=== PATIENT | male | born 1975 | race Caucasian/White ===

== ENCOUNTER 2021-08-12 13:54 | Outpatient (CLI) | payer OTHER ==
--- NOTE | 2021-08-12 14:31 | XRay Report ---
CHEST 2 VIEWS INDICATION / CLINICAL INFORMATION: FOR BASELINE HTN. COMPARISON: None available. FINDINGS: SUPPORT DEVICES: None. HEART / MEDIASTINUM: No significant abnormality. LUNGS / PLEURA: No significant pulmonary or pleural abnormality. No pneumothorax. ADDITIONAL FINDINGS: No significant additional findings. IMPRESSION: 1. No acute findings. Signer Name: Sherwin Frances MD Signed: 08/12/2021 2:25 PM Workstation Name: [id number]
== END 2021-08-12 13:55 | disposition home or self-care (01) ==
LOC: XRAY 13:54
PROVIDERS: ATTEND Family Medicine
DX: I10 Essential (primary) hypertension (principal)
CPT/HCPCS: 71046